=== PATIENT | male | born 1955 | race Caucasian/White ===

== ENCOUNTER → 2016-10-26 | Outpatient (CLI) | payer OTHER ==
[~2016-10-26] VITALS: Ht 167.6 cm; Wt 90.7 kg
[~2016-10-26] MED LIST: AMBIEN5 MG PO; ANTIVERT12.5 MG PO; ATORVASTATIN CA40 MG PO; CARVEDILOL6.25 MG PO; CELEXA20 MG PO; CELEXA40 MG PO; CITALOPRAM HBR40 MG PO; CLARITIN10 M3 PO; COREG6.25 M1 PO; CYMBALTA60 MG PO; DAILY MULTIPLE1 EACH PO; ENDOCET 5-3251 EACH PO; ESZOPICLONE3 MG PO; FLEXERIL5 MG PO; FLONASE16 G1 BOTH NARES; GABAPENTIN100 MG PO; KENALOG,ARISTOC80 GM TP; LIPITOR40 MG PO; LUNESTA3 MG PO; NOHOMEMEDS; OXYCONTIN40 MG PO; PERCOCET 5/31 TABLET PO; RELAFEN500 M1 PO; ST. JOSEPH ASPI81 MG PO; TRAZODONE HCL50 MG PO; VICODIN 5-3001 EACH PO; XARELTO20 MG PO; ZANAFLEX4 M1 PO; ZYBAN 150 MG T150 MG PO
== END | disposition home or self-care (01) ==
LOC: AMB 08:58
DX: K22.10 Ulcer of esophagus without bleeding (principal); K64.4 Residual hemorrhoidal skin tags; K76.0 Fatty (change of) liver, not elsewhere classified; D12.3 Benign neoplasm of transverse colon; Z09 Encounter for follow-up examination after completed treatment for conditions other than malignant neoplasm; Z86.010 Personal history of colon polyps; R79.89 Other specified abnormal findings of blood chemistry; I51.9 Heart disease, unspecified; F17.200 Nicotine dependence, unspecified, uncomplicated; Z79.82 Long term (current) use of aspirin; Z88.0 Allergy status to penicillin
CPT/HCPCS: 88173; 88305; 88307; 88313; C1726; J3010

== ENCOUNTER 2017-04-03 11:06 | Emergency (ER) | payer OTHER ==
[~2017-04-03] VITALS: Ht 167.6 cm; Wt 91.8 kg
[2017-04-03 12:23] LABS: BASOPHIL COUNT 0.1 K/uL (0-0.1); EOSINOPHIL (%) 6.3 % (0-5); EOSINOPHIL COUNT 0.6 K/uL (0-0.3); HEMATOCRIT 39.6 % (38.0-50.0); IMMATURE GRANULOCYTE (%) 0.4 % (0.0-0.7); INSTRUMENT ABS NEUTROPHIL CT 5.4 K/uL; LYMPHOCYTE COUNT 2.7 K/uL (1.0-2.8); MCH 25.6 PG (29.0-34.0); MCHC 31.8 G/DL (30.0-36.0); MCV 80.5 FL (86-99); MEAN PLAT.VOLUME 8.7 uM^3 (9.0-12.4); MONOCYTE (%) 9.1 % (3-12); MONOCYTE COUNT 0.9 K/uL (0-0.8); NEUTROPHIL (%) 55.6 % (45-76); NEUTROPHIL COUNT 5.4 K/uL (1.8-6.4); PLATELET COUNT 289 K/uL (156-360); RBC DIS.WIDTH-CV 14.5 % (11.8-14.6); RBC DIS.WIDTH-SD 41.8 % (39-53); RED BLOOD COUNT 4.92 M/uL (4.00-5.50); WHITE BLOOD COUNT 9.7 K/uL (4.1-10.2)
[2017-04-03 12:32] LABS: CHLORIDE 102 mEq/L (99-109); POTASSIUM 4.5 mEq/L (3.7-5.4); SODIUM 138 mEq/L (136-147)
[2017-04-03 12:34] LABS: GLUCOSE 116 mg/dL (70-99)
[2017-04-03 12:35] LABS: ANION GAP 10 MEQ/L (2-14)
[2017-04-03 12:37] LABS: GFR ESTIMATE (CALCULATED) 55 mL/min/
[2017-04-03 12:38] LABS: UREA NITROGEN (BUN) 20 mg/dL (9-23)
[2017-04-03 12:44] LABS: TROP-I INTERPRETATION NEGATIVE; TROPONIN-I < 0.01 ng/mL (0.0-0.30)
[2017-04-03 14:28] VITALS: BP 147/86
== END 2017-04-03 14:28 | disposition home or self-care (01) ==
LOC: EME 11:06
PROVIDERS: Emergency Medicine
DX: R53.1 Weakness (principal); I25.10 Atherosclerotic heart disease of native coronary artery without angina pectoris; I25.2 Old myocardial infarction; Z86.73 Personal history of transient ischemic attack (TIA), and cerebral infarction without residual deficits; Z79.82 Long term (current) use of aspirin; Z88.0 Allergy status to penicillin; Z87.891 Personal history of nicotine dependence
CPT/HCPCS: 70450; 71010; 80048; 84484; 85025; 93005; 99281; 99284; G8978 GP CI; G8979 GP CH; G8987 GO CI; G8988 GO CH

== ENCOUNTER 2017-10-03 07:29 | Outpatient (CLI) | payer OTHER ==
[~2017-10-03] VITALS: Ht 167.6 cm; Wt 90.7 kg
[2017-10-03 12:30] VITALS: BP 108/53
[2017-10-03 17:30] VITALS: BP 110/54
[2017-10-03 20:22] VITALS: BP 121/63
[2017-10-04] VITALS: BP 110/54
[2017-10-04 07:11] VITALS: BP 114/56
== END 2017-10-04 12:47 | disposition home or self-care (01) ==
LOC: AMB 07:29 → 2SOUTH 10:00 → 2EAST 10:00 → ENRESERV 11:12 → 2EAST 12:11
PROC: 0DBK8ZX Excision of Ascending Colon, Via Natural or Artificial Opening Endoscopic, Diagnostic (ICD-10-PCS; principal; 2017-10-03)
DX: Z12.11 Encounter for screening for malignant neoplasm of colon (principal); Z86.010 Personal history of colon polyps; K64.4 Residual hemorrhoidal skin tags; I25.10 Atherosclerotic heart disease of native coronary artery without angina pectoris; I70.0 Atherosclerosis of aorta; K21.9 Gastro-esophageal reflux disease without esophagitis; R79.89 Other specified abnormal findings of blood chemistry; E78.5 Hyperlipidemia, unspecified; Z79.82 Long term (current) use of aspirin; Z86.73 Personal history of transient ischemic attack (TIA), and cerebral infarction without residual deficits; Z87.891 Personal history of nicotine dependence; I25.2 Old myocardial infarction
CPT/HCPCS: 88305; G0378; J2250

== ENCOUNTER 2018-01-14 11:02 | Day surgery (SDC) | payer OTHER ==
[~2018-01-14] VITALS: Ht 167.6 cm; Wt 90.7 kg
[~2018-01-14 11:02] MED LIST changes: +CLARITIN10 MG PO; +NEURONTIN100 MG PO; +NORCO 5/3251 TABLET PO; +ZANAFLEX4 MG PO
== END 2018-01-14 13:55 | disposition home or self-care (01) ==
LOC: PAIN 11:02 → SDC 11:45 → PAIN 13:55
DX: M47.816 Spondylosis without myelopathy or radiculopathy, lumbar region (principal); M51.26 Other intervertebral disc displacement, lumbar region; M48.061 Spinal stenosis, lumbar region without neurogenic claudication; I10 Essential (primary) hypertension; I25.2 Old myocardial infarction; Z86.73 Personal history of transient ischemic attack (TIA), and cerebral infarction without residual deficits; Z87.891 Personal history of nicotine dependence; Z95.5 Presence of coronary angioplasty implant and graft; Z88.0 Allergy status to penicillin; Z79.82 Long term (current) use of aspirin
CPT/HCPCS: J1030; J2250; S0020

== ENCOUNTER 2018-01-22 10:44 | Day surgery (SDC) | payer OTHER ==
[~2018-01-22] VITALS: Ht 167.6 cm; Wt 90.7 kg
== END 2018-01-22 12:37 | disposition home or self-care (01) ==
LOC: PAIN 10:44 → SDC 11:15 → PAIN 12:37
PROC: 3E0T3TZ Introduction of Destructive Agent into Peripheral Nerves and Plexi, Percutaneous Approach (ICD-10-PCS; principal; 2018-01-22)
PROC: BR161ZZ Fluoroscopy of Lumbar Facet Joint(s) using Low Osmolar Contrast (ICD-10-PCS; principal; 2018-01-22)
DX: M47.816 Spondylosis without myelopathy or radiculopathy, lumbar region (principal); M51.26 Other intervertebral disc displacement, lumbar region; G89.29 Other chronic pain; F41.8 Other specified anxiety disorders; I10 Essential (primary) hypertension; Z86.73 Personal history of transient ischemic attack (TIA), and cerebral infarction without residual deficits; Z87.891 Personal history of nicotine dependence; Z79.891 Long term (current) use of opiate analgesic; Z88.0 Allergy status to penicillin
CPT/HCPCS: J1030; J2250; S0020